=== PATIENT | male | born 1975 | race Caucasian/White ===

== ENCOUNTER 2021-03-04 16:30 | Emergency (ER) | payer MEDICAID ==
[~2021-03-04] VITALS: Ht 170.2 cm; Wt 78.0 kg
[2021-03-04] MEDS ORDERED: IBUPROFEN 600MG TABLET PO ONE (18:30)
[2021-03-04 19:26] VITALS: BP 132/88
[2021-03-04] MEDS ORDERED: IBUP-2029 MT (19:27)
[2021-03-04] MEDS ORDERED: CYCL10TA7 MT (19:28)
== END 2021-03-04 19:35 | disposition home or self-care (01) ==
LOC: ER 16:30
DX: S16.1XXA Strain of muscle, fascia and tendon at neck level, initial encounter (principal); V43.52XA Car driver injured in collision with other type car in traffic accident, initial encounter; W22.11XA Striking against or struck by driver side automobile airbag, initial encounter; Y93.89 Activity, other specified; Y92.488 Other paved roadways as the place of occurrence of the external cause
CPT/HCPCS: 72040; 99283